=== PATIENT | female | born 1980 | race African-American/Black ===

== ENCOUNTER 2016-04-19 19:57 | Emergency (ER) | payer OTHER ==
[~2016-04-19] VITALS: Ht 154.9 cm; Wt 140.9 kg
[2016-04-19 20:07] VITALS: BP 155/83
== END 2016-04-19 21:07 | disposition left against medical advice (07) ==
LOC: EME 19:57 → EXP 19:57
DX: S16.1XXA Strain of muscle, fascia and tendon at neck level, initial encounter (principal); V49.40XA Driver injured in collision with unspecified motor vehicles in traffic accident, initial encounter; Y92.411 Interstate highway as the place of occurrence of the external cause; I10 Essential (primary) hypertension
CPT/HCPCS: 99281; 99283